=== PATIENT | female | born 1985 | race Caucasian/White ===

== ENCOUNTER 2017-05-11 00:02 | Emergency (ER) | payer MEDICAID ==
[~2017-05-11] VITALS: Ht 167.6 cm; Wt 113.0 kg
[2017-05-11 01:00] VITALS: BP 128/56
== END 2017-05-11 02:04 | disposition home or self-care (01) ==
LOC: ER 00:02
DX: J06.9 Acute upper respiratory infection, unspecified (principal); F41.9 Anxiety disorder, unspecified; F32.9 Major depressive disorder, single episode, unspecified; Z88.0 Allergy status to penicillin
CPT/HCPCS: 71010; 99283

== ENCOUNTER 2017-06-11 20:23 | Emergency (ER) | payer MEDICAID ==
[~2017-06-11] VITALS: Ht 170.2 cm; Wt 129.0 kg
[2017-06-11] MEDS ORDERED: IPRATROPIUM/ALBUTEROL 0.5-3(2.5)MG/3ML NEB HHN ONE (22:15)
[2017-06-11 22:45] VITALS: BP 102/65
== END 2017-06-11 23:30 | disposition home or self-care (01) ==
LOC: ER 20:23
DX: J45.909 Unspecified asthma, uncomplicated (principal); J32.9 Chronic sinusitis, unspecified; Z88.0 Allergy status to penicillin
CPT/HCPCS: 81025; 94640; 99283; Z7610; J7620

== ENCOUNTER 2017-07-18 17:36 | Emergency (ER) | payer MEDICAID ==
[~2017-07-18] VITALS: Ht 170.2 cm; Wt 127.0 kg
[2017-07-18] MEDS ORDERED: IBUPROFEN 600MG TABLET PO ONE (22:30)
[2017-07-18 23:03] VITALS: BP 141/84
[2017-07-18] MEDS ORDERED: IBUPROFEN 600MG TABLET ONE (23:07)
== END 2017-07-18 23:07 | disposition home or self-care (01) ==
LOC: ER 18:18
DX: M25.571 Pain in right ankle and joints of right foot (principal); J45.909 Unspecified asthma, uncomplicated; Z88.0 Allergy status to penicillin
CPT/HCPCS: 73610; 73630; 99284

== ENCOUNTER 2017-10-09 19:11 | Emergency (ER) | payer MEDICAID ==
[~2017-10-09] VITALS: Ht 170.2 cm; Wt 128.0 kg
[2017-10-09] MEDS ORDERED: IPRATROPIUM/ALBUTEROL 0.5-3(2.5)MG/3ML NEB HHN ONE (19:30)
[2017-10-09] MEDS ORDERED: IBUPROFEN 800MG TABLET PO ONE (22:45)
[2017-10-10] MEDS ORDERED: IPRATROPIUM/ALBUTEROL 0.5-3(2.5)MG/3ML NEB HHN SCH (01:08)
[2017-10-10 02:17] VITALS: BP 136/85
== END 2017-10-10 02:18 | disposition home or self-care (01) ==
LOC: ER 19:11
DX: J40 Bronchitis, not specified as acute or chronic (principal); J45.909 Unspecified asthma, uncomplicated; Z88.0 Allergy status to penicillin
CPT/HCPCS: 71045; 81025; 87804; 94640; 99285; J7620

== ENCOUNTER 2018-12-17 10:22 | Emergency (ER) | payer MEDICAID ==
[~2018-12-17] VITALS: Ht 170.2 cm; Wt 90.0 kg
[2018-12-17 12:37] LABS: BASOPHILS % 0.5 % (0.0-2.0); EOSINOPHILS % 4.3 % (0.0-5.0); HEMATOCRIT. 37.7 % (36.0-48.0); HEMOGLOBIN. 12.6 g/dL (12.0-16.0); LYMPHOCYTES % 30.4 % (20.0-50.0); MEAN CORPUSCULAR HEMOGLOBIN 28.6 pg (28.0-32.0); MEAN PLATELET VOLUME 10.6 fl (7.4-10.4); MONOCYTES % 5.5 % (2.0-8.0); NEUTROPHILS % 59.3 % (40.0-76.0); PLATELET 213 x1000/uL (130-400); RED BLOOD CELL COUNT 4.43 mill/uL (4.2-5.4); RED CELL DISTRIBUTION WIDTH 14.2 % (11.6-14.6)
[2018-12-17 12:39] LABS: CHLORIDE 105 mEq/L (98-107)
[2018-12-17 12:50] LABS: B-HCG QUANTITATIVE < 1 mIU/mL (<3)
[2018-12-17 13:39] VITALS: BP 115/59
== END 2018-12-17 13:46 | disposition home or self-care (01) ==
LOC: ER 10:27
DX: N93.8 Other specified abnormal uterine and vaginal bleeding (principal); F41.9 Anxiety disorder, unspecified; F32.9 Major depressive disorder, single episode, unspecified; Z94.7 Corneal transplant status
CPT/HCPCS: 36415; 76830; 76856; 81025; 84702; 86850; 86900; 99284

== ENCOUNTER 2018-12-18 23:28 | Emergency (ER) | payer MEDICAID ==
[~2018-12-18] VITALS: Ht 170.2 cm; Wt 142.0 kg
[2018-12-19] MEDS ORDERED: ACETAMINOPHEN WITH CODEINE 300/30MG TABLET PO ONE (02:15)
[2018-12-19 02:22] VITALS: BP 135/78
== END 2018-12-19 02:23 | disposition home or self-care (01) ==
LOC: ER 23:28
DX: N93.8 Other specified abnormal uterine and vaginal bleeding (principal); Z94.7 Corneal transplant status
CPT/HCPCS: 36415; 85014; 85018; 99283; Z7610

== ENCOUNTER 2020-09-19 18:09 | Emergency (ER) | payer MEDICAID ==
[~2020-09-19] VITALS: Ht 170.2 cm; Wt 131.0 kg
[2020-09-19] MEDS ORDERED: ACETAMINOPHEN 325MG TABLET PO ONE (18:30)
[2020-09-19 18:54] LABS: CLARITY URINE CLOUDY (CLEAR); COLOR URINE YELLOW (YELLOW); KETONES URINE NEGATIVE (NEGATIVE); LEUKOCYTE ESTERASE URINE 2+ (NEGATIVE); NITRITE URINE NEGATIVE (NEGATIVE); OCCULT BLOOD URINE 2+ (NEGATIVE); PH URINE 5.5 (4.5-8.0); PROTEIN URINE NEGATIVE (NEGATIVE); SPECIFIC GRAVITY URINE 1.012 (1.005-1.030); UROBILINOGEN URINE 0.2 E.U./dL (0.2-1.0)
[2020-09-19] MEDS ORDERED: IBUPROFEN 600MG TABLET PO ONE (19:00)
[2020-09-19] MEDS ORDERED: CIPR500T5 MT (20:29)
[2020-09-19 20:40] VITALS: BP 116/64
== END 2020-09-19 20:48 | disposition home or self-care (01) ==
LOC: ER 18:09
DX: N39.0 Urinary tract infection, site not specified (principal); E11.9 Type 2 diabetes mellitus without complications; F41.9 Anxiety disorder, unspecified; F32.9 Major depressive disorder, single episode, unspecified; Z20.822 Contact with and (suspected) exposure to COVID-19; Z94.7 Corneal transplant status; Z88.0 Allergy status to penicillin
CPT/HCPCS: 81003; 81025; 82962; 87086; 99283; C9803; U0003

== ENCOUNTER 2021-01-07 14:33 | Emergency (ER) | payer MEDICAID, OTHER ==
[~2021-01-07] VITALS: Ht 170.2 cm; Wt 129.0 kg
[~2021-01-07 14:33] MED LIST: CIPR500T5 MT
[2021-01-07] MEDS ORDERED: IBUP-2030 MT (16:41)
[2021-01-07] MEDS ORDERED: KETOROLAC 30MG/ML VIAL IM ONE (16:45)
[2021-01-07 16:58] VITALS: BP 157/64
== END 2021-01-07 16:58 | disposition home or self-care (01) ==
LOC: ER 14:33
DX: M72.2 Plantar fascial fibromatosis (principal); E11.9 Type 2 diabetes mellitus without complications; Z88.0 Allergy status to penicillin; Z98.890 Other specified postprocedural states
CPT/HCPCS: 96372; 99283; J1885

== ENCOUNTER 2021-01-10 22:31 | Emergency (ER) | payer MEDICAID ==
[~2021-01-10] VITALS: Ht 170.2 cm; Wt 129.0 kg
[~2021-01-10 22:31] MED LIST changes: +IBUP-2030 MT
[2021-01-10] MEDS ORDERED: ACET-2708 MT (23:18)
[2021-01-10 23:20] VITALS: BP 127/63
== END 2021-01-10 23:28 | disposition home or self-care (01) ==
LOC: ER 22:31
DX: J02.9 Acute pharyngitis, unspecified (principal); H92.02 Otalgia, left ear; R51.9 Headache, unspecified; E11.9 Type 2 diabetes mellitus without complications; J45.909 Unspecified asthma, uncomplicated; Z88.0 Allergy status to penicillin; Z98.890 Other specified postprocedural states
CPT/HCPCS: 81025; 99282; 99283

== ENCOUNTER 2021-03-15 00:58 | Emergency (ER) | payer MEDICAID ==
[~2021-03-15] VITALS: Ht 170.2 cm; Wt 123.0 kg
[~2021-03-15 00:58] MED LIST changes: +ACET-2708 MT
[2021-03-15] MEDS ORDERED: KETOROLAC 60MG/2ML VIAL IM ONE (03:00)
[2021-03-15 05:50] VITALS: BP 134/82
== END 2021-03-15 05:51 | disposition home or self-care (01) ==
LOC: ER 00:58
DX: R51.9 Headache, unspecified (principal); E11.9 Type 2 diabetes mellitus without complications; F41.9 Anxiety disorder, unspecified; Z86.19 Personal history of other infectious and parasitic diseases; Z98.890 Other specified postprocedural states; Z88.0 Allergy status to penicillin
CPT/HCPCS: 70450; 81025; 96372; 99284; J1885

== ENCOUNTER 2021-04-07 21:15 | Emergency (ER) | payer MEDICAID ==
[~2021-04-07] VITALS: Ht 170.2 cm; Wt 122.0 kg
[2021-04-07 21:39] VITALS: BP 134/73
[2021-04-07] MEDS ORDERED: CLIN300C12 MT (23:23)
[2021-04-07] MEDS ORDERED: CLINDAMYCIN HCL 150MG CAPSULE PO ONE (23:30)
== END 2021-04-08 00:18 | disposition home or self-care (01) ==
LOC: ER 21:15
DX: N61.1 Abscess of the breast and nipple (principal); F41.9 Anxiety disorder, unspecified; F32.9 Major depressive disorder, single episode, unspecified; E11.9 Type 2 diabetes mellitus without complications; Z88.0 Allergy status to penicillin; Z79.899 Other long term (current) drug therapy
CPT/HCPCS: 81025; 99283

== ENCOUNTER 2022-08-15 14:09 | Emergency (ER) | payer MEDICAID, OTHER ==
[~2022-08-15] VITALS: Ht 170.2 cm; Wt 119.0 kg
[~2022-08-15 14:09] MED LIST changes: +CLIN-194 MT
[2022-08-15] MEDS ORDERED: SODIUM CHLORIDE 0.9% 1,000 ML IV ONE (15:00)
[2022-08-15] MEDS ORDERED: DIPHENHYDRAMINE 50MG/ML VIAL IV ONE (15:00)
[2022-08-15] MEDS ORDERED: ONDANSETRON HCL 4MG/2ML INJ IV ONE (15:00)
[2022-08-15] MEDS ORDERED: PROCHLORPERAZINE 10MG/2ML VIAL IV ONE (15:00)
[2022-08-15] MEDS ORDERED: ACETAMINOPHEN 325MG TABLET PO ONE (15:00)
[2022-08-15] MEDS ORDERED: KETOROLAC 30MG/ML VIAL IV ONE (15:00)
[2022-08-15 15:02] LABS: BASOPHILS % 0.7 % (0.0-2.0); EOSINOPHILS % 2.2 % (0.0-5.0); HEMATOCRIT. 41.5 % (36.0-48.0); HEMOGLOBIN. 13.9 g/dL (12.0-16.0); LYMPHOCYTES % 23.6 % (20.0-50.0); MEAN CORPUSCULAR HEMOGLOBIN 28.1 pg (28.0-32.0); MEAN CORPUSCULAR VOLUME 83.7 fL (81.0-99.0); MEAN PLATELET VOLUME 10.2 fl (7.4-10.4); MONOCYTES % 4.8 % (2.0-8.0); NEUTROPHILS % 68.7 % (40.0-76.0); PLATELET 246 x1000/uL (130-400); RED BLOOD CELL COUNT 4.96 mill/uL (4.2-5.4); RED CELL DISTRIBUTION WIDTH 14.5 % (11.6-14.6)
[2022-08-15 15:09] LABS: CHLORIDE 104 mEq/L (98-107); HCG SCREEN NEGATIVE
[2022-08-15 15:22] LABS: ETHANOL BLOOD < 10 mg/dL; PHOSPHORUS 3.3 mg/dL (2.5-4.9); T4 FREE 1.15 ng/dL (0.76-1.46)
[2022-08-15 15:23] LABS: CLARITY URINE CLEAR (CLEAR); COLOR URINE YELLOW (YELLOW); KETONES URINE NEGATIVE (NEGATIVE); LEUKOCYTE ESTERASE URINE 2+ (NEGATIVE); NITRITE URINE NEGATIVE (NEGATIVE); OCCULT BLOOD URINE NEGATIVE (NEGATIVE); PH URINE 6.5 (4.5-8.0); PROTEIN URINE NEGATIVE (NEGATIVE); SPECIFIC GRAVITY URINE 1.011 (1.005-1.030); UROBILINOGEN URINE 0.2 E.U./dL (0.2-1.0)
[2022-08-15] MEDS ORDERED: MAGNESIUM 2 G PREMIX 50 ML IV ONE (15:30)
[2022-08-15 15:36] LABS: *AMPHETAMINES SCREEN URINE NEGATIVE (NEGATIVE); *BARBITURATES SCREEN URINE NEGATIVE (NEGATIVE); *BENZODIAZEPINES SCREEN URINE NEGATIVE (NEGATIVE); *COCAINE SCREEN URINE NEGATIVE (NEGATIVE); CANNABINOID URINE SCREEN NEGATIVE (NEGATIVE); METHADONE URINE SCREEN NEGATIVE (NEGATIVE); OPIATES URINE SCREEN NEGATIVE (NEGATIVE); PHENCYCLIDINE URINE SCREEN NEGATIVE (NEGATIVE)
[2022-08-15 16:36] VITALS: BP 126/68
== END 2022-08-15 17:23 | disposition home or self-care (01) ==
LOC: ER 14:09
DX: G43.909 Migraine, unspecified, not intractable, without status migrainosus (principal); F32.A Depression, unspecified; F41.9 Anxiety disorder, unspecified; E11.9 Type 2 diabetes mellitus without complications; E66.9 Obesity, unspecified; G93.0 Cerebral cysts; Z68.41 Body mass index [BMI] 40.0-44.9, adult; Z79.84 Long term (current) use of oral hypoglycemic drugs; Z94.7 Corneal transplant status; Z88.0 Allergy status to penicillin
CPT/HCPCS: 36415; 71045; 74176; 80053; 80305; 80320; 81003; 81025; 83735; 84100; 84439; 84443; 84481; 84703; 85025; 93005; 96361; 96365; 96375; 99285; J0780; J1200; J1885; J2405; J3475; Z7610; G0480

== ENCOUNTER 2022-10-19 03:41 | Emergency (ER) | payer OTHER ==
[~2022-10-19] VITALS: Ht 170.2 cm; Wt 115.2 kg
[2022-10-19] MEDS ORDERED: IBUPROFEN 800MG TABLET PO ONE (04:45)
[2022-10-19 05:03] VITALS: BP 154/87
[2022-10-19 05:06] LABS: CLARITY URINE TURBID (CLEAR); COLOR URINE RED (YELLOW); KETONES URINE NEGATIVE (NEGATIVE); LEUKOCYTE ESTERASE URINE 1+ (NEGATIVE); NITRITE URINE NEGATIVE (NEGATIVE); OCCULT BLOOD URINE 3+ (NEGATIVE); PROTEIN URINE 2+ (NEGATIVE); SPECIFIC GRAVITY URINE 1.024 (1.005-1.030)
[2022-10-19] MEDS ORDERED: IBUPROFEN 400MG TABLET PO NR (05:15)
[2022-10-19] MEDS ORDERED: NAPR-1176 MT (06:10)
[2022-10-19] MEDS ORDERED: NITR-87 MT (06:10)
== END 2022-10-19 06:15 | disposition home or self-care (01) ==
LOC: ER 03:53
DX: N39.0 Urinary tract infection, site not specified (principal); M79.10 Myalgia, unspecified site; F41.9 Anxiety disorder, unspecified; F32.A Depression, unspecified; E11.9 Type 2 diabetes mellitus without complications; Z88.0 Allergy status to penicillin
CPT/HCPCS: 81003; 81025; 99283

== ENCOUNTER 2022-10-26 22:25 | Emergency (ER) | payer OTHER ==
[~2022-10-26] VITALS: Ht 170.2 cm; Wt 114.0 kg
[~2022-10-26 22:25] MED LIST changes: +NAPR-1176 MT; +NITR-87 MT
[2022-10-26 22:56] VITALS: BP 154/85
== END 2022-10-27 02:36 | disposition left against medical advice (07) ==
LOC: ER 22:34
DX: Z53.21 Procedure and treatment not carried out due to patient leaving prior to being seen by health care provider (principal)
CPT/HCPCS: 71045; 99281

== ENCOUNTER 2023-08-05 10:39 | Emergency (ER) | payer MEDICAID, OTHER ==
[~2023-08-05] VITALS: Ht 165.1 cm; Wt 105.0 kg
[~2023-08-05 10:39] MED LIST changes: +CYCL10TA21 MT
[2023-08-05 10:52] VITALS: O2SAT 99
[2023-08-05] MEDS ORDERED: CYCLOBENZAPRINE 10MG TABLET PO ONE (12:15)
[2023-08-05] MEDS ORDERED: ACETAMINOPHEN 325MG TABLET PO ONE (12:15)
[2023-08-05] MEDS ORDERED: LIDO700A15 TP (13:05)
[2023-08-05] MEDS ORDERED: NAPR-1176 MT (13:05)
[2023-08-05 13:35] VITALS: BP 122/76; PULSE 84; RESP 19; TEMP 98.1
== END 2023-08-05 14:04 | disposition home or self-care (01) ==
LOC: ER 10:47
DX: M25.562 Pain in left knee (principal); M25.561 Pain in right knee; I10 Essential (primary) hypertension; E11.9 Type 2 diabetes mellitus without complications; Z88.0 Allergy status to penicillin; Z79.899 Other long term (current) drug therapy; Z98.890 Other specified postprocedural states; W01.0XXA Fall on same level from slipping, tripping and stumbling without subsequent striking against object, initial encounter; Y93.9 Activity, unspecified; Y92.89 Other specified places as the place of occurrence of the external cause; Y99.8 Other external cause status
CPT/HCPCS: 81025; 99283

== ENCOUNTER 2024-02-02 11:31 | Emergency (ER) | payer MEDICAID ==
[~2024-02-02] VITALS: Ht 170.2 cm; Wt 124.8 kg
[~2024-02-02 11:31] MED LIST changes: +LIDO700A15 TP
[2024-02-02 11:43] VITALS: O2SAT 99
[2024-02-02] MEDS: IBUPROFEN 600MG TABLET PO ONE (12:37)
[2024-02-02] MEDS ORDERED: IBUP-2029 MT (12:46)
[2024-02-02 13:04] VITALS: BP 138/78; PULSE 76; RESP 16; TEMP 98.3
== END 2024-02-02 13:42 | disposition home or self-care (01) ==
LOC: ER 11:31
DX: S93.691A Other sprain of right foot, initial encounter (principal); F41.9 Anxiety disorder, unspecified; E11.9 Type 2 diabetes mellitus without complications; I10 Essential (primary) hypertension; Z98.890 Other specified postprocedural states; Z88.0 Allergy status to penicillin; X58.XXXA Exposure to other specified factors, initial encounter; Y93.89 Activity, other specified; Y92.89 Other specified places as the place of occurrence of the external cause; Y99.8 Other external cause status
CPT/HCPCS: 73630; 81025; 99283

== ENCOUNTER 2024-09-22 02:19 | Emergency (ER) | payer OTHER ==
[~2024-09-22] VITALS: Ht 172.7 cm; Wt 145.0 kg
[~2024-09-22 02:19] MED LIST changes: +IBUP-2029 MT
[2024-09-22 02:42] VITALS: O2SAT 99
[2024-09-22] MEDS: ACETAMINOPHEN 325MG TABLET PO STA (03:36)
[2024-09-22] MEDS: SODIUM CHLORIDE 0.9% 1,000 ML IV ONE (03:36)
[2024-09-22 04:59] LABS: CHLORIDE 102 mEq/L (98-107); POTASSIUM 3.8 mEq/L (3.5-5.1); SODIUM 139 mEq/L (136-145)
[2024-09-22 05:00] LABS: CARBON DIOXIDE 27 mEq/L (21-32)
[2024-09-22 05:01] LABS: CALCIUM 9.3 mg/dL (8.7-10.4)
[2024-09-22 05:03] LABS: BASOPHILS % 0.5 % (0.0-2.0); DIFFERENTIAL COMMENT 0; EOSINOPHILS % 1.6 % (0.0-5.0); HEMATOCRIT. 34.4 % (36.0-48.0); HEMOGLOBIN. 10.6 g/dL (12.0-16.0); MEAN CORPUSCULAR HEMOGLOBIN 21.9 pg (28.0-32.0); MEAN CORPUSCULAR HGB CONC 30.7 g/dL (31.0-37.0); MEAN CORPUSCULAR VOLUME 71.1 fL (81.0-99.0); MEAN PLATELET VOLUME 10.1 fl (7.4-10.4); MONOCYTES % 6.4 % (2.0-8.0); NEUTROPHILS % 68.5 % (40.0-76.0); PLATELET 242 x1000/uL (130-400); RED BLOOD CELL COUNT 4.84 mill/uL (4.2-5.4); RED CELL DISTRIBUTION WIDTH 17.5 % (11.6-14.6); WHITE BLOOD COUNT 11.1 x1000/uL (4.5-11.0)
[2024-09-22 05:05] LABS: CREATININE 0.7 mg/dL (0.6-1.0); GLUCOSE 162 mg/dL (70-105)
[2024-09-22 05:06] LABS: UREA NITROGEN BLOOD 11 mg/dL (9-23)
[2024-09-22 05:53] LABS: TROPONIN I HIGH SENSITIVITY < 4 ng/L (3.0-34)
[2024-09-22 06:30] VITALS: BP 120/64; PULSE 88; RESP 18; TEMP 36.8; O2SAT 99
== END 2024-09-22 07:35 | disposition home or self-care (01) ==
LOC: ER 02:19
DX: G43.909 Migraine, unspecified, not intractable, without status migrainosus (principal); F41.9 Anxiety disorder, unspecified; E11.40 Type 2 diabetes mellitus with diabetic neuropathy, unspecified; E78.00 Pure hypercholesterolemia, unspecified; I10 Essential (primary) hypertension; I25.2 Old myocardial infarction; Z88.0 Allergy status to penicillin; Z98.890 Other specified postprocedural states; Z79.899 Other long term (current) drug therapy
CPT/HCPCS: 99284; 96360; 96361; 80048; 81025; 85025; 84484; 36415; 93005; J7030

== ENCOUNTER 2024-10-11 21:57 | Emergency (ER) | payer OTHER ==
[~2024-10-11] VITALS: Ht 170.2 cm; Wt 122.0 kg
[2024-10-11 22:08] VITALS: O2SAT 99
[2024-10-11 22:15] VITALS: BP 117/57; PULSE 90; RESP 18; TEMP 36.9; O2SAT 98
[2024-10-11] MEDS ORDERED: CLIN-194 MT (23:52)
[2024-10-11] MEDS ORDERED: BO1 TP (23:52)
[2024-10-12] MEDS: LIDOCAINE HCL 1% 20ML VIAL INFIL ONE (00:02)
== END 2024-10-12 00:49 | disposition home or self-care (01) ==
LOC: ER 21:57
DX: K65.1 Peritoneal abscess (principal); E11.9 Type 2 diabetes mellitus without complications; Z79.1 Long term (current) use of non-steroidal anti-inflammatories (NSAID); Z88.0 Allergy status to penicillin
CPT/HCPCS: 99283; 10060; J3490

== ENCOUNTER 2024-10-14 14:50 | Emergency (ER) | payer OTHER ==
[~2024-10-14] VITALS: Ht 170.2 cm; Wt 122.0 kg
[~2024-10-14 14:50] MED LIST changes: +BO1 TP
[2024-10-14 15:30] VITALS: O2SAT 98
[2024-10-14] MEDS: ACETAMINOPHEN 325MG TABLET PO ONE (16:27)
[2024-10-14] MEDS: LIDOCAINE HCL/PF 1% 10 MG/ML 5ML VIAL INFIL ONE (16:28)
[2024-10-14] MEDS: BACITRACIN ZINC OINT UDPKT TOP ONE (16:28)
[2024-10-14 17:24] VITALS: BP 130/75; PULSE 82; RESP 16; TEMP 36.6; O2SAT 98
== END 2024-10-14 17:45 | disposition home or self-care (01) ==
LOC: ER 14:50
DX: L02.414 Cutaneous abscess of left upper limb (principal); E11.40 Type 2 diabetes mellitus with diabetic neuropathy, unspecified; I10 Essential (primary) hypertension; Z79.1 Long term (current) use of non-steroidal anti-inflammatories (NSAID); Z88.0 Allergy status to penicillin
CPT/HCPCS: 99283; 10060; J2003

== ENCOUNTER 2024-10-16 18:31 | Emergency (ER) | payer OTHER ==
[~2024-10-16] VITALS: Ht 170.2 cm; Wt 123.0 kg
[2024-10-16 18:34] VITALS: O2SAT 98
[2024-10-16] MEDS: KETOROLAC 15MG/ML VIAL IM ONE (22:01)
[2024-10-16] MEDS ORDERED: SULF1TAB48 MT (22:17)
[2024-10-16 22:35] VITALS: BP 128/94; PULSE 89; RESP 18; TEMP 36.7; O2SAT 98
== END 2024-10-16 22:35 | disposition home or self-care (01) ==
LOC: ER 18:31
DX: L02.818 Cutaneous abscess of other sites (principal); E11.9 Type 2 diabetes mellitus without complications; I10 Essential (primary) hypertension; Z79.1 Long term (current) use of non-steroidal anti-inflammatories (NSAID); Z88.0 Allergy status to penicillin
CPT/HCPCS: 99283; 81025; 96372; J1885

== ENCOUNTER 2024-11-09 22:55 | Emergency (ER) | payer OTHER ==
[~2024-11-09] VITALS: Ht 170.2 cm; Wt 122.0 kg
[~2024-11-09 22:55] MED LIST changes: +SULF1TAB48 MT
[2024-11-09 23:00] VITALS: O2SAT 100
[2024-11-10 00:02] VITALS: BP 131/77; PULSE 87; RESP 18; TEMP 36.6; O2SAT 99
[2024-11-10] MEDS ORDERED: IBUP-1525 MT (01:35)
[2024-11-10] MEDS ORDERED: CLAR10 MT (01:35)
[2024-11-10] MEDS ORDERED: CLIN-194 MT (01:35)
[2024-11-10] MEDS ORDERED: TOPUD MT (01:35)
== END 2024-11-10 01:54 | disposition home or self-care (01) ==
LOC: ER 23:00
DX: J02.9 Acute pharyngitis, unspecified (principal); F41.9 Anxiety disorder, unspecified; E11.9 Type 2 diabetes mellitus without complications; I10 Essential (primary) hypertension; Z88.0 Allergy status to penicillin; Z79.899 Other long term (current) drug therapy; Z98.890 Other specified postprocedural states
CPT/HCPCS: 99281; 99283

== ENCOUNTER 2025-01-31 15:25 | Emergency (ER) | payer OTHER ==
[~2025-01-31] VITALS: Ht 167.6 cm; Wt 115.0 kg
[~2025-01-31 15:25] MED LIST changes: +CIPR-452 MT; -CIPR500T5 MT; +CLAR10 MT; +IBUP-1525 MT; +LIDO-53 TP; -LIDO700A15 TP; +TOPUD MT
[2025-01-31 15:40] VITALS: O2SAT 98
[2025-01-31 16:48] LABS: CLARITY URINE CLOUDY (CLEAR); COLOR URINE YELLOW (YELLOW); GLUCOSE URINE 3+ (NEGATIVE); KETONES URINE TRACE (NEGATIVE); LEUKOCYTE ESTERASE URINE TRACE (NEGATIVE); NITRITE URINE NEGATIVE (NEGATIVE); OCCULT BLOOD URINE 2+ (NEGATIVE); PH URINE 5.5 (4.5-8.0); PROTEIN URINE 2+ (NEGATIVE); SPECIFIC GRAVITY URINE 1.032 (1.005-1.030); UROBILINOGEN URINE 0.2 E.U./dL (0.2-1.0)
[2025-01-31 17:04] LABS: BACTERIA URINE 1+; SQUAMOUS EPITHELIAL CELL URINE 2+ /lpf (RARE/1+)
[2025-01-31] MEDS ORDERED: CEFP200T13 MT (17:06)
[2025-01-31] MEDS: CEFTRIAXONE SODIUM 1G VIAL IM ONE (17:09)
[2025-01-31 17:40] VITALS: BP 117/76; PULSE 91; RESP 18; TEMP 37; O2SAT 100
== END 2025-01-31 17:41 | disposition home or self-care (01) ==
LOC: ER 15:25
DX: N39.0 Urinary tract infection, site not specified (principal); E11.9 Type 2 diabetes mellitus without complications; I10 Essential (primary) hypertension; F41.9 Anxiety disorder, unspecified; Z79.1 Long term (current) use of non-steroidal anti-inflammatories (NSAID); Z79.899 Other long term (current) drug therapy; Z88.0 Allergy status to penicillin
CPT/HCPCS: 81003; 81025; 96372; 99283; J0696; Z7610

== ENCOUNTER 2025-06-27 12:19 | Emergency (ER) | payer MEDICAID, OTHER ==
[~2025-06-27] VITALS: Ht 170.2 cm; Wt 122.0 kg
[~2025-06-27 12:19] MED LIST changes: +CEFP200T13 MT; -CIPR-452 MT; +CIPR-494 MT; +IBUP-1455 MT; -IBUP-2029 MT
[2025-06-27 12:28] VITALS: O2SAT 100
[2025-06-27 12:42] VITALS: BP 129/76; PULSE 97; RESP 16; TEMP 37.1; O2SAT 97
== END 2025-06-27 15:06 | disposition home or self-care (01) ==
LOC: ER 12:19
DX: L03.312 Cellulitis of back [any part except buttock and flank] (principal); I10 Essential (primary) hypertension; E11.9 Type 2 diabetes mellitus without complications; Z79.1 Long term (current) use of non-steroidal anti-inflammatories (NSAID); Z88.0 Allergy status to penicillin
CPT/HCPCS: 99282